=== PATIENT | male | born 1970 | race Caucasian/White ===

== ENCOUNTER 2019-10-07 21:54 | Observation (INO) | payer SELFPAY ==
[2019-10-07] MEDS ORDERED: Aspirin Chewable 81 MG TAB ONE (22:33)
--- NOTE | 2019-10-07 22:34 | RAD ---
EXAM: Portable chest PROVIDED CLINICAL HISTORY: Chest pain COMPARISON: None FINDINGS: Cardiac and mediastinal silhouette is within normal limits. No focal consolidation, pleural fluid or pneumothorax evident. IMPRESSION: No evidence for an acute cardiopulmonary process.
[2019-10-07 22:47] LABS: #Eosinphils 0.2 thou/uL (0.0-0.7); #Lymphocytes 1.7 thou/uL (1.20-3.40); #Monocytes 0.9 thou/uL (0.11-0.59); #Neutrophils 6.6 thou/uL (1.40-6.50); %Basophils 0.2 % (0.0-1.0); %Eosinophils 1.8 % (0.0-10.0); %Lymphocytes 18.2 % (21.0-51.0); %Monocytes 9.5 % (0.0-10.0); %Neutrophils 70.3 % (42.0-75.0); Hemoglobin 15.5 g/dL (14.0-18.0); Mean Corpuscular HGB CONC 33.8 g/dL (32.0-36.0); Mean Corpuscular Hemoglobin 31.3 pg (27.0-31.0); Mean Corpuscular Volume 92.9 fL (78.0-98.0); Mean Platelet Volume 7.4 fL (7.4-10.4); Platelet Count 227 thou/uL (130-400); RBC Distribution Width 12.3 % (11.5-14.5); Red Blood Cell (RBC) Count 4.95 mill/uL (4.70-6.10); White Blood Cell (WBC) Count 9.4 thou/uL (4.8-10.8)
[2019-10-07 23:10] LABS: ALT (SGPT) 23 U/L (8-55); AST (SGOT) 14 U/L (5-34); Albumin 4.1 g/dL (3.5-5.0); Alkaline Phosphatase 64 U/L (40-110); Anion Gap 11 mmol/L (10-20); BUN (Urea Nitrogen) 18 mg/dL (8.9-20.6); Bilirubin, Total 0.4 mg/dL (0.2-1.2); CK (CPK) 88 U/L (30-200); Calc. Creatinine Clearance 0 mL/min (70-130); Calcium 8.8 mg/dL (7.8-10.44); Carbon Dioxide 26 mmol/L (22-29); Chloride 103 mmol/L (98-107); Estimated GFR-MDRD Greater than 90; Glucose 123 mg/dL (70-105); Potassium 3.9 mmol/L (3.5-5.1); Protein, Total 7.1 g/dL (6.0-8.3); Sodium 136 mmol/L (136-145)
[2019-10-07 23:32] LABS: CKMB 0.6 ng/mL (0-6.6)
[2019-10-08 02:35] LABS: Troponin I Less than 0.010 ng/mL (< 0.028)
[2019-10-08] MEDS ORDERED: Nitroglycerin 0.4 MG TAB (25 Tab Bottle) PO PRN (03:27)
[2019-10-08] MEDS ORDERED: Acetaminophen 325 MG TAB PO PRN (03:29)
[2019-10-08] MEDS ORDERED: Calcium Carbonate 500 MG ChewTAB PO PRN (03:29)
[2019-10-08] MEDS ORDERED: Senokot S 8.6-50 MG TAB PO PRN (03:29)
[2019-10-08] MEDS ORDERED: Ondansetron ODT 4 MG TAB PO PRN (03:29)
[2019-10-08] MEDS ORDERED: Ondansetron PF 4 MG/2 ML Vial IVP PRN (03:29)
--- NOTE | 2019-10-08 04:06 | HP ---
CHIEF COMPLAINT: Chest discomfort. HISTORY OF PRESENT ILLNESS: The patient is a 49-year-old male, with hypertension, hyperlipidemia, and family history of heart disease, presented to the emergency room with chest discomfort. Over the last 3 days, the patient has on and off chest discomfort that is progressively getting worse. It is a precordial in location, intermittent without any aggravating or relieving factor. He denies any radiation. No associated nausea, vomiting, diaphoresis, or palpitations. The pain is 4/10. He denies any recent immobilization travel. The pain lasts for more than 15-20 minutes each time. He denies any heartburn, belching, burping, or worsening of the pain with deep breathing. No cough, shortness of breath, wheezing, or lower extremity edema reported. In the emergency room, his EKG showed sinus rhythm with nonspecific ST-T wave changes. His HeartScore is 5. He received aspirin in the ER. PAST MEDICAL HISTORY: 1. Hypertension. 2. Hyperlipidemia. PAST SURGICAL HISTORY: 1. Left hip replacement. 2. Lumbar surgery. 3. Pelvis surgery. ALLERGIES: NO KNOWN DRUG ALLERGIES. CURRENT HOME MEDICATION: The patient takes lisinopril and statin. He is unable to recall the names or the dosages. SOCIAL HISTORY: The patient currently lives at home with his family. No current use of smoking, alcohol, or drug use next. FAMILY HISTORY: Positive for premature coronary artery disease. REVIEW OF SYSTEMS: All other review of systems was reviewed and were found negative. PHYSICAL EXAMINATION: VITAL SIGNS: Temperature 98.2, respirations of 16, pulse of 84, blood pressure of 127/79, O2 saturation 97% on room air. GENERAL: A 49-year-old male, in no apparent distress. Chest discomfort has improved at this time. HEENT: Head, atraumatic and normocephalic. Sclerae anicteric. Moist mucous membranes. No oral lesion. NECK: Supple. No JVD. No carotid bruit. LUNGS: Clear to auscultation bilaterally. HEART: S1, S2 present. Regular rate and rhythm. No murmurs, rubs, or gallops. ABDOMEN: Soft, nontender. Bowel sounds present. EXTREMITIES: No edema or calf tenderness. NEUROLOGIC: Grossly nonfocal. Moves all 4 extremities. PSYCHIATRY: Alert, awake, and oriented x3. SKIN: Warm and dry. LYMPH NODES: No palpable lymph nodes in the neck. PERIPHERAL VASCULAR: Radial pulses are palpable bilaterally. MUSCULOSKELETAL: No joint swelling or tenderness. LABORATORY FINDINGS: WBC 9.4 with hemoglobin 15.5, hematocrit 46, and platelet 227. Chemistry showed sodium 136, potassium 3.9, chloride 103, bicarb 26, BUN 18, creatinine 0.86. Troponin of 0.030. Repeat troponin was negative. EKG by my review as discussed above. Chest x-ray by my review was negative for infiltrate. IMPRESSION: 1. Chest discomfort. 2. Hypertension. 3. Hyperlipidemia. 4. Elevated troponin, concerning for cardiac etiology. 5. Family history of heart disease. 6. Degenerative joint disease. PLAN: The patient will be monitored on the telemetry unit as observation. We will repeat troponins every 3 hours for total of 3 times. If the troponins remain negative, we will schedule a Cardiolite stress test. We will start him on aspirin. We will confirm the home medication dosages. We will keep n.p.o. Plan was discussed with the patient in detail. He stated understanding. Job ID: [id number]
[2019-10-08] MEDS ORDERED: Acetaminophen 325 MG TAB ONE (04:27)
[2019-10-08 05:24] LABS: Troponin I Less than 0.010 ng/mL (< 0.028)
[2019-10-08 06:53] VITALS: BMI 26.9
[2019-10-08] MEDS ORDERED: Lisinopril 5 MG TAB PO SCH (09:00)
[2019-10-08] MEDS ORDERED: Aspirin 325 mg Enteric Coated Tablet PO SCH (09:00)
--- NOTE | 2019-10-08 12:06 | NM ---
EXAM: CARDIAC SPECT HISTORY: Chest pain, hypertension, dyslipidemia TECHNIQUE: A myocardial perfusion scan was performed using the single isotope 1 day protocol with arpita hnetium 99m sestamibi. [10 mCi] was injected intravenously for the rest exam followed by 30 mCi for the stress study. Exercise stress was monitored and interpreted by nurse practitioner Jacqueline Mead, FINDINGS: Homogeneous tracer distribution is seen in the myocardial segments on stress and rest image s without fixed or reversible defects. Gated SPECT LVEF: 81% Wall motion exam: Normal IMPRESSION: Normal myocardial perfusion scan
--- NOTE | 2019-10-08 12:12 | MRI ---
EXAM: MRI of the brain without contrast HISTORY: Left-sided weakness COMPARISON: None TECHNIQUE: Multiplanar multisequence MR images were obtained of the brain without IV contrast. FINDINGS: The brain demonstrates normal signal intensity on all obtained sequences. No restricted diffusion. No hydronephrosis. No extra-axial fluid collection or intracranial hemorrhage. The expected flow voids are present. Corpus callosum, pituitary, and craniocervical junction are within normal limits. The calvarium and overlying soft tissues are unremarkable. The paranasal sinuses and mastoid air cells are well aerated. IMPRESSION: No evidence of acute intracranial abnormality.
[2019-10-08 12:58] VITALS: BP 164/82; TEMP 97.9
--- NOTE | 2019-10-08 15:40 | PDOC.HOSPP ---
- Subjective Encounter Date: 10/08/19 Encounter Time: 15:38 Subjective: Mr. Smith was seen today in follow-up of chest pain. He says his symptoms have completely resolved. No chest pain or arm weakness or numbness - Objective Vital Signs & Weight: Vital Signs (12 hours) Temp Pulse Resp BP Pulse Ox 10/08/19 12:47 69 10/08/19 12:12 97.9 F 104 H 20 164/82 H 97 10/08/19 06:45 98 F 69 20 138/67 98 Weight Weight 177 lb 1.6 oz Result Diagrams: 10/07/19 22:43 10/07/19 22:43 Hospitalist ROS - Medication Medications: Active Medications Generic Name Dose Route Start Last Admin Trade Name Freq PRN Reason Stop Dose Admin Acetaminophen 650 mg 10/08/19 03:29 10/08/19 04:30 Tylenol PO 650 mg Q4H PRN Administration Headache/Fever/Mild Pain (1-3) Aspirin 325 mg 10/08/19 09:00 10/08/19 12:47 Ecotrin PO 325 mg DAILY SHAQUILLE Administration Lisinopril 5 mg 10/08/19 09:00 10/08/19 12:47 Zestril PO 5 mg BID SHAQUILLE Administration - Exam Eye: PERRL Heart: RRR, no murmur, no gallops, no rubs, normal peripheral pulses Respiratory: CTAB, no wheezes, no rales, no ronchi, normal chest expansion Gastrointestinal: soft, non-tender, non-distended, normal bowel sounds, no palpable masses, no hepatomegaly, no splenomegaly Extremities: no cyanosis, no edema Hosp A/P (1) Chest pain Code(s): R07.9 - CHEST PAIN, UNSPECIFIED Status: Acute - Plan * Chest pain- stress test was negative * Arm numbness- MRI of the brain was also negative * Stable for discharge home.
[2019-10-08] MEDS ORDERED: Atorvastatin Calcium 10 MG TAB PO SCH (21:00)
--- NOTE | 2019-10-09 03:19 | DIS ---
DATE OF ADMISSION: 10/08/2019 DATE OF DISCHARGE: 10/08/2019 PRIMARY CARE PHYSICIAN: Dr. Obregon. DISCHARGE DISPOSITION: Home. PRIMARY DISCHARGE DIAGNOSES: 1. Chest pain, probable, noncardiac. 2. Left arm numbness, unknown etiology. 3. Hypertension. 4. Dyslipidemia. DISCHARGE MEDICATIONS: There was no change in his medications and these include: 1. Tramadol 50 mg 2 tablets q.4 hours as needed. 2. Flomax 0.4 mg at bedtime. 3. Quinapril 10 mg daily. 4. Gemfibrozil 600 mg at bedtime. PROCEDURES DONE DURING THE ADMISSION: The patient had a nuclear stress test, which was negative for any wall motion abnormalities and normal perfusion scan. The patient also had an MRI of the brain showing no evidence of any acute intracranial abnormality. CODE STATUS: Full code. ALLERGIES: TO DULOXETINE AND FENTANYL. HOSPITAL COURSE: Mr. Smith is a pleasant 49-year-old gentleman, who was admitted to the hospital with complaints of chest pain and left arm numbness. The full details of which are outlined in the history and physical. He was placed in observation, ruled out. A nuclear stress test was done, which was negative. The patient also had an MRI of the brain, which was negative. By the time I saw him, his symptoms had completely resolved and as such, he is being discharged home and was instructed to have close outpatient followup within [address] Obregon. Job ID: [id number]
== END 2019-10-08 16:37 | disposition home or self-care (01) ==
LOC: ERS 21:54 → ERHOLD 10-08 00:18 → 2SW 10-08 06:44
PROVIDERS: ADMIT Internal Medicine; ATTEND Internal Medicine
DX: R07.89 Other chest pain (principal); R20.0 Anesthesia of skin; I10 Essential (primary) hypertension; E78.5 Hyperlipidemia, unspecified; M19.90 Unspecified osteoarthritis, unspecified site; R79.89 Other specified abnormal findings of blood chemistry; Z79.899 Other long term (current) drug therapy; Z88.8 Allergy status to other drugs, medicaments and biological substances; Z82.49 Family history of ischemic heart disease and other diseases of the circulatory system
CPT/HCPCS: 36415; 70551; 71045; 78452; 80053; 82550; 82553; 84484; 85025; 93005; 93017; A9500; G0378

== ENCOUNTER 2020-03-01 13:00 | Emergency (ER) | payer OTHER, SELFPAY ==
[~2020-03-01 13:00] MED LIST: Iopamidol-370 76% 500 ML 1 ML ONE
[2020-03-01 13:48] LABS: #Eosinphils 0.1 thou/uL (0.0-0.7); #Lymphocytes 1.9 thou/uL (1.20-3.40); #Monocytes 0.7 thou/uL (0.11-0.59); #Neutrophils 4.6 thou/uL (1.40-6.50); %Basophils 0.2 % (0.0-1.0); %Eosinophils 1.9 % (0.0-10.0); %Lymphocytes 25.7 % (21.0-51.0); %Monocytes 9.5 % (0.0-10.0); %Neutrophils 62.7 % (42.0-75.0); Hemoglobin 16.4 g/dL (14.0-18.0); Mean Corpuscular HGB CONC 33.6 g/dL (32.0-36.0); Mean Corpuscular Hemoglobin 31.8 pg (27.0-31.0); Mean Corpuscular Volume 94.7 fL (78.0-98.0); Mean Platelet Volume 7.8 fL (7.4-10.4); Platelet Count 216 thou/uL (130-400); RBC Distribution Width 12.1 % (11.5-14.5); Red Blood Cell (RBC) Count 5.17 mill/uL (4.70-6.10); White Blood Cell (WBC) Count 7.3 thou/uL (4.8-10.8)
[2020-03-01] MEDS ORDERED: Aspirin Chewable 81 MG TAB ONE (14:00)
[2020-03-01] MEDS ORDERED: Metoclopramide HCl 10 MG/2 ML VIAL ONE (14:01)
[2020-03-01] MEDS ORDERED: diphenhydrAMINE 50 MG/ML VIAL ONE (14:01)
[2020-03-01] MEDS ORDERED: Ketorolac Tromethamine 30 MG/ML VIAL ONE (14:01)
--- NOTE | 2020-03-01 14:06 | RAD ---
Chest one view HISTORY: Chest pain. COMPARISON: 10/07/2019. FINDINGS: Cardiac silhouette and pulmonary vasculature are unremarkable. Mediastinum is midline. Subtle irregular shaped somewhat linear and partially spiculated densities project over each base. Lo bar consolidation. No evidence of pneumothorax. channel development manager leads overlie the chest. IMPRESSION : Subtle non-confluent irregular opacity at each lung base. Possible early infiltrate. Clinical correla tion regarding other signs and symptoms of bibasilar pneumonitis is required. Please consider upright PA and lateral views of the chest when patient can undergo that exam.
[2020-03-01 14:10] LABS: ALT (SGPT) 20 U/L (8-55); AST (SGOT) 14 U/L (5-34); Albumin 4.1 g/dL (3.5-5.0); Alkaline Phosphatase 57 U/L (40-110); Anion Gap 11 mmol/L (10-20); BUN (Urea Nitrogen) 13 mg/dL (8.9-20.6); Bilirubin, Total 0.5 mg/dL (0.2-1.2); CK (CPK) 75 U/L (30-200); Calc. Creatinine Clearance 0 mL/min (70-130); Calcium 9.1 mg/dL (7.8-10.44); Carbon Dioxide 25 mmol/L (22-29); Chloride 105 mmol/L (98-107); Estimated GFR-MDRD Greater than 90; Globulin 3.1 g/dL (2.4-3.5); Glucose 112 mg/dL (70-105); Lipase 31 U/L (8-78); Potassium 4.1 mmol/L (3.5-5.1); Protein, Total 7.2 g/dL (6.0-8.3); Sodium 137 mmol/L (136-145)
--- NOTE | 2020-03-01 15:30 | CT ---
EXAM: BRAIN CT WITHOUT IV CONTRAST: History: Chest pain, headache. FINDINGS: No focal mass or midline shift. No intra or extraaxial hemorrhage. Sinuses and mastoids are clear of acute process. IMPRESSION: No significant acute intracranial process. No mass or bleed. POS: [facility]
--- NOTE | 2020-03-01 15:34 | CT ---
CT ANGIOGRAM CHEST WITH 3D RENDERING: History: Chest pain FINDINGS: No CT evidence for acute pulmonary embolism. No evidence of aortic aneurysm or dissection. No mediast inal mass or adenopathy. No pleural effusion or pericardial effusion. Unremarkable visualized abdomen . IMPRESSION: Unremarkable CT angiogram chest. No CT evidence for acute pulmonary embolism or other acute process. POS: [facility]
== END 2020-03-01 17:25 | disposition home or self-care (01) ==
LOC: ERS 13:00
DX: R07.9 Chest pain, unspecified (principal); R51 Headache; E78.5 Hyperlipidemia, unspecified; I10 Essential (primary) hypertension; Z79.899 Other long term (current) drug therapy
CPT/HCPCS: 36415; 70450; 71045; 71275; 80053; 82550; 83690; 84484; 85025; 93005; 94760; 96365; 96366; 96375; J1200; J1885; J2765; Q9967

== ENCOUNTER 2020-10-14 14:31 | Outpatient (CLI) | payer OTHER ==
--- NOTE | 2020-10-14 14:53 | RAD ---
EXAM: XR Hip Lt 2-3 View PROVIDED CLINICAL HISTORY: Pain COMPARISON: None FINDINGS: Postoperative changes of left total hip arthroplasty are demonstrated, without evidence for hardware loosening or migration. Acetabular plate and screws are demonstrated, without evidence for hardware loosening or migration. There is no evidence for an acute fracture. Alignment appears anatomic. IMPRESSION: Postoperative changes without evidence for hardware complication.
--- NOTE | 2020-10-14 14:54 | RAD ---
EXAM: XR Knee Rt 2 View PROVIDED CLINICAL HISTORY: Pain FINDINGS: There is no evidence for fracture or other acute osseous abnormality. Alignment appears anatomic. Nhi nt spaces appear preserved. IMPRESSION: No evidence for an acute osseous abnormality or significant arthropathy.
== END 2020-10-14 14:32 | disposition home or self-care (01) ==
LOC: BICRAD 14:31
PROVIDERS: ATTEND Family Medicine
DX: M25.561 Pain in right knee (principal); M25.552 Pain in left hip; Z96.642 Presence of left artificial hip joint

== ENCOUNTER 2021-01-12 10:05 | Observation (INO) | payer OTHER ==
[2021-01-12] MEDS ORDERED: Ondansetron PF 4 MG/2 ML Vial ONE (10:24)
[2021-01-12] MEDS ORDERED: Morphine 4 MG/ML VIAL ONE (10:24)
[2021-01-12 10:43] LABS: #Eosinphils 0.1 thou/uL (0.0-0.7); #Lymphocytes 0.6 thou/uL (1.20-3.40); #Monocytes 0.5 thou/uL (0.11-0.59); #Neutrophils 10.5 thou/uL (1.40-6.50); %Basophils 0.1 % (0.0-1.0); %Eosinophils 0.8 % (0.0-10.0); %Lymphocytes 4.9 % (21.0-51.0); %Monocytes 4.1 % (0.0-10.0); Hemoglobin 17.5 g/dL (14.0-18.0); Mean Corpuscular HGB CONC 34.5 g/dL (32.0-36.0); Mean Corpuscular Hemoglobin 32.2 pg (27.0-31.0); Mean Corpuscular Volume 93.2 fL (78.0-98.0); Mean Platelet Volume 8.2 fL (7.4-10.4); Platelet Count 180 thou/uL (130-400); RBC Distribution Width 12.1 % (11.5-14.5); Red Blood Cell (RBC) Count 5.46 mill/uL (4.70-6.10); White Blood Cell (WBC) Count 11.7 thou/uL (4.8-10.8)
[2021-01-12 11:07] LABS: Bacteria/HPF None Seen HPF (None Seen); Bilirubin Negative (Negative); Blood, Urine Trace (Negative); Clarity Clear (Clear); Glucose, Urine (Dipstick) Normal (Negative); Ketone, Urine Negative (Negative); Leukocyte Negative Leu/uL (Negative); Nitrite Negative (Negative); Protein, Urine (Dipstick) 10 mg/dL (Neg-Trace); Specific Gravity, Urine 1.029 (1.002-1.036); Squamous Epithelial 0-3 HPF (0-3); Urobilinogen Normal mg/dL (Less than 2); WBC/HPF 0-3 HPF (0-3)
[2021-01-12 11:09] LABS: ALT (SGPT) 30 U/L (8-55); AST (SGOT) 25 U/L (5-34); Albumin 4.6 g/dL (3.5-5.0); Alkaline Phosphatase 62 U/L (40-110); Anion Gap 19 mmol/L (10-20); BUN (Urea Nitrogen) 18 mg/dL (8.9-20.6); CK (CPK) 85 U/L (30-200); Calc. Creatinine Clearance 0 mL/min (70-130); Calcium 9.3 mg/dL (7.8-10.44); Carbon Dioxide 21 mmol/L (22-29); Chloride 104 mmol/L (98-107); Globulin 3.6 g/dL (2.4-3.5); Glucose 126 mg/dL (70-105); Lipase 13 U/L (8-78); Potassium 4.8 mmol/L (3.5-5.1); Protein, Total 8.2 g/dL (6.0-8.3); Sodium 139 mmol/L (136-145)
[2021-01-12 13:31] LABS: Lactic Acid 2.2 mmol/L (0.5-2.2)
[2021-01-12] MEDS ORDERED: Cefepime 2 GM VIAL ONE (13:33)
[2021-01-12] MEDS ORDERED: Acetaminophen 500 MG TAB ONE (13:54)
[2021-01-12] MEDS ORDERED: Ondansetron PF 4 MG/2 ML Vial IVP PRN (17:24)
[2021-01-12] MEDS ORDERED: Acetaminophen 325 MG TAB PO PRN (17:24)
[2021-01-12] MEDS ORDERED: traMADol HCl 50 MG TAB PO PRN (17:33)
[2021-01-12] MEDS ORDERED: Tamsulosin HCl 0.4 MG CAP PO SCH (21:00)
[2021-01-12 22:09] VITALS: BMI 28.0
[2021-01-12] MEDS: Famotidine/PF 20 mg/2ml Vial SLOW IVP SCH (22:49)
[2021-01-13] MEDS: Sodium Chloride 0.9% 1,000 ML IV SCH ×3 (02:54→13:45)
[2021-01-13 05:25] LABS: #Eosinphils 0.2 thou/uL (0.0-0.7); #Lymphocytes 1.1 thou/uL (1.20-3.40); #Monocytes 0.7 thou/uL (0.11-0.59); #Neutrophils 4.5 thou/uL (1.40-6.50); %Basophils 0.5 % (0.0-1.0); %Eosinophils 3.2 % (0.0-10.0); %Monocytes 10.7 % (0.0-10.0); %Neutrophils 68.6 % (42.0-75.0); Hemoglobin 14.5 g/dL (14.0-18.0); Mean Corpuscular HGB CONC 33.4 g/dL (32.0-36.0); Mean Corpuscular Hemoglobin 31.4 pg (27.0-31.0); Mean Platelet Volume 7.9 fL (7.4-10.4); Platelet Count 149 thou/uL (130-400); RBC Distribution Width 12.1 % (11.5-14.5); Red Blood Cell (RBC) Count 4.63 mill/uL (4.70-6.10); White Blood Cell (WBC) Count 6.6 thou/uL (4.8-10.8)
[2021-01-13 05:56] LABS: ALT (SGPT) 21 U/L (8-55); AST (SGOT) 13 U/L (5-34); Albumin 3.4 g/dL (3.5-5.0); Alkaline Phosphatase 47 U/L (40-110); Anion Gap 11 mmol/L (10-20); BUN (Urea Nitrogen) 10 mg/dL (8.9-20.6); Bilirubin, Total 0.7 mg/dL (0.2-1.2); Calc. Creatinine Clearance 136 mL/min (70-130); Calcium 7.9 mg/dL (7.8-10.44); Carbon Dioxide 24 mmol/L (22-29); Chloride 105 mmol/L (98-107); Globulin 2.8 g/dL (2.4-3.5); Glucose 115 mg/dL (70-105); Potassium 3.9 mmol/L (3.5-5.1); Protein, Total 6.2 g/dL (6.0-8.3); Sodium 136 mmol/L (136-145)
[2021-01-13 06:02] LABS: SARS-CoV-2 PCR by NAA Not Detected (NotDetected)
[2021-01-13] MEDS: Famotidine/PF 20 mg/2ml Vial SLOW IVP SCH (08:55)
[2021-01-13] MEDS ORDERED: Enoxaparin Sodium 40 MG/0.4 ML SYRINGE SC SCH (09:00)
[2021-01-13 16:11] VITALS: BP 137/73; TEMP 98
== END 2021-01-13 18:34 | disposition home or self-care (01) ==
LOC: ERS 10:05 → ERHOLD 17:24 → 2SW 22:01
PROVIDERS: ADMIT Internal Medicine; ATTEND Internal Medicine
DX: K52.9 Noninfective gastroenteritis and colitis, unspecified (principal); E87.2 Acidosis; E88.09 Other disorders of plasma-protein metabolism, not elsewhere classified; I10 Essential (primary) hypertension; E78.5 Hyperlipidemia, unspecified; G89.29 Other chronic pain; M54.9 Dorsalgia, unspecified; N40.0 Benign prostatic hyperplasia without lower urinary tract symptoms; Z20.822 Contact with and (suspected) exposure to COVID-19; Z79.899 Other long term (current) drug therapy; Z88.8 Allergy status to other drugs, medicaments and biological substances; Z86.718 Personal history of other venous thrombosis and embolism
CPT/HCPCS: 36415; 74177; 80053; 81003; 81015; 82550; 83605; 83690; 85025; 87040; 87635; 96365; 96372; 96375; 96376; G0378; J0500; J0692; J1650; J2270; J2405; Q9967; S0028; U0003; U0005

== ENCOUNTER 2024-11-29 22:25 | Inpatient (IN) | payer SELFPAY ==
[~2024-11-29 22:25] MED LIST changes: -Iopamidol-370 76% 500 ML 1 ML ONE; +Iopamidol-370 76% 500 ML MDV (1 ML CHARGE) ONE
[2024-11-29 22:46] LABS: #Basophils 0.03 10x3/uL (0.0-0.2); %Basophils 0.3 % (0.0-1.0); %Eosinophils 1.3 % (0.0-10.0); %Lymphocytes 31.8 % (21.0-51.0); %Monocytes 11.4 % (0.0-10.0); %Neutrophils 54.6 % (42.0-75.0); Hematocrit 50.8 % (42.0-52.0); Hemoglobin 17.9 g/dL (14.0-18.0); Mean Corpuscular HGB CONC 35.2 g/dL (32.0-36.0); Mean Corpuscular Hemoglobin 31.2 pg (27.0-31.0); Mean Corpuscular Volume 88.5 fL (78.0-98.0); Mean Platelet Volume 10.2 fL (7.4-10.4); Platelet Count 145 10x3/uL (130-400); RBC Distribution Width 13.3 % (11.5-14.5); Red Blood Cell (RBC) Count 5.74 mill/uL (4.70-6.10)
[2024-11-29 22:59] LABS: ALT (SGPT) 50 U/L (Less than 45); AST (SGOT) 26 U/L (11-34); Albumin 4.2 g/dL (3.1-4.5); Alkaline Phosphatase 77 U/L (40-110); Anion Gap 13 mmol/L (10-20); BUN (Urea Nitrogen) 16 mg/dL (8.4-25.7); Bilirubin, Total 0.6 mg/dL (0.3-1.2); Calc. Creatinine Clearance 0 mL/min (70-130); Calcium 9.3 mg/dL (7.8-10.44); Carbon Dioxide 26 mmol/L (22-29); Chloride 99 mmol/L (98-107); Estimated GFR 97; Globulin 3.7 g/dL (2.4-3.5); Glucose 99 mg/dL (70-105); Potassium 3.3 mmol/L (3.5-5.1); Protein, Total 7.9 g/dL (6.0-8.3); Sodium 135 mmol/L (136-145)
[2024-11-29 23:04] LABS: Troponin I Less than 0.010 ng/mL (< 0.028)
[2024-11-29 23:08] LABS: INR-International Normal Ratio 1.1; PTT 29.3 sec (22.9-36.1); Prothrombin Time 14.3 sec (12.0-14.7)
[2024-11-30] MEDS ORDERED: Ondansetron ODT 4 MG TAB PO PRN (03:07)
[2024-11-30] MEDS ORDERED: hydrALAZINE 20 MG/ML VIAL SLOW IVP PRN (03:07)
[2024-11-30] MEDS ORDERED: Ondansetron PF 4 MG/2 ML Vial IVP PRN (03:07)
[2024-11-30] MEDS: HYDROcodone/Acetaminophen 10/325 mg Tablet PO SCH (03:13)
[2024-11-30 03:21] VITALS: BMI 27.4
[2024-11-30] MEDS: Potassium Chloride 20 MEQ TAB PO SCH ×2 (04:29→09:55)
[2024-11-30 04:38] LABS: Hemoglobin A1c 5.7 % (4.0-6.0)
[2024-11-30 04:42] LABS: #Basophils 0.06 10x3/uL (0.0-0.2); %Basophils 0.8 % (0.0-1.0); %Eosinophils 1.5 % (0.0-10.0); %Lymphocytes 32.4 % (21.0-51.0); %Monocytes 10.1 % (0.0-10.0); %Neutrophils 54.4 % (42.0-75.0); Hematocrit 48.5 % (42.0-52.0); Hemoglobin 16.8 g/dL (14.0-18.0); Mean Corpuscular HGB CONC 34.6 g/dL (32.0-36.0); Mean Corpuscular Hemoglobin 31.1 pg (27.0-31.0); Mean Corpuscular Volume 89.6 fL (78.0-98.0); Mean Platelet Volume 10.3 fL (7.4-10.4); Platelet Count 138 10x3/uL (130-400); RBC Distribution Width 13.3 % (11.5-14.5); Red Blood Cell (RBC) Count 5.41 mill/uL (4.70-6.10)
[2024-11-30 04:45] LABS: Anion Gap 14 mmol/L (10-20); BUN (Urea Nitrogen) 14 mg/dL (8.4-25.7); Calc. Creatinine Clearance 127 mL/min (70-130); Calcium 8.9 mg/dL (7.8-10.44); Carbon Dioxide 24 mmol/L (22-29); Cardiac Risk 6.4 (Less than 4.5); Chloride 100 mmol/L (98-107); Cholesterol 212 mg/dl (< 200 Desired); Estimated GFR 107; Glucose 108 mg/dL (70-105); HDL Cholesterol 33 mg/dL (>60 Neg Risk); LDL Cholesterol, Calculated 149 mg/dL; Magnesium 2.3 mg/dL (1.6-2.6); Potassium 3.2 mmol/L (3.5-5.1); Sodium 135 mmol/L (136-145); Triglycerides 148 mg/dL (Less than 150)
[2024-11-30] MEDS: Aspirin 81 mg Enteric Coated Tablet PO SCH (09:55)
[2024-11-30] MEDS: Fioricet 325/50/40 mg Tablet PO PRN (09:57)
[2024-11-30] MEDS: Tamsulosin HCl 0.4 MG CAP PO SCH (21:32)
[2024-11-30] MEDS: Atorvastatin Calcium 40 MG TAB PO SCH (21:32)
[2024-12-01 05:03] LABS: #Basophils 0.04 10x3/uL (0.0-0.2); %Basophils 0.5 % (0.0-1.0); %Eosinophils 2.7 % (0.0-10.0); %Lymphocytes 35.1 % (21.0-51.0); %Monocytes 8.8 % (0.0-10.0); %Neutrophils 52.4 % (42.0-75.0); Hematocrit 48.9 % (42.0-52.0); Hemoglobin 16.7 g/dL (14.0-18.0); Mean Corpuscular HGB CONC 34.2 g/dL (32.0-36.0); Mean Corpuscular Volume 90.7 fL (78.0-98.0); Platelet Count 125 10x3/uL (130-400); RBC Distribution Width 13.6 % (11.5-14.5); Red Blood Cell (RBC) Count 5.39 mill/uL (4.70-6.10)
[2024-12-01 05:08] LABS: ALT (SGPT) 41 U/L (Less than 45); AST (SGOT) 24 U/L (11-34); Albumin 3.7 g/dL (3.1-4.5); Alkaline Phosphatase 61 U/L (40-110); Anion Gap 15 mmol/L (10-20); BUN (Urea Nitrogen) 13 mg/dL (8.4-25.7); Bilirubin, Total 0.6 mg/dL (0.3-1.2); Calc. Creatinine Clearance 98 mL/min (70-130); Calcium 9.1 mg/dL (7.8-10.44); Carbon Dioxide 24 mmol/L (22-29); Chloride 104 mmol/L (98-107); Estimated GFR 89; Globulin 3.4 g/dL (2.4-3.5); Glucose 114 mg/dL (70-105); Magnesium 2.2 mg/dL (1.6-2.6); Potassium 4.1 mmol/L (3.5-5.1); Protein, Total 7.1 g/dL (6.0-8.3); Sodium 139 mmol/L (136-145)
[2024-12-01] MEDS ORDERED: Hydrochlorothiazide 25 MG TAB PO SCH (09:00)
[2024-12-01] MEDS: Hydrochlorothiazide 25 MG TAB PO SCH (10:06)
[2024-12-01] MEDS: Acetaminophen 325 MG TAB PO PRN (10:06)
[2024-12-02 05:06] LABS: Anion Gap 14 mmol/L (10-20); BUN (Urea Nitrogen) 17 mg/dL (8.4-25.7); Calc. Creatinine Clearance 116 mL/min (70-130); Calcium 9.1 mg/dL (7.8-10.44); Carbon Dioxide 23 mmol/L (22-29); Chloride 108 mmol/L (98-107); Estimated GFR 104; Glucose 103 mg/dL (70-105); Potassium 3.4 mmol/L (3.5-5.1); Sodium 142 mmol/L (136-145)
[2024-12-02] MEDS: Potassium Chloride 20 MEQ TAB PO SCH (09:07)
[2024-12-02 09:30] LABS: Troponin I Less than 0.010 ng/mL (< 0.028)
[2024-12-02 11:47] LABS: Troponin I Less than 0.010 ng/mL (< 0.028)
[2024-12-03 05:04] LABS: Anion Gap 14 mmol/L (10-20); BUN (Urea Nitrogen) 12 mg/dL (8.4-25.7); Calc. Creatinine Clearance 110 mL/min (70-130); Calcium 9.1 mg/dL (7.8-10.44); Carbon Dioxide 25 mmol/L (22-29); Chloride 107 mmol/L (98-107); Estimated GFR 102; Glucose 98 mg/dL (70-105); Potassium 3.9 mmol/L (3.5-5.1); Sodium 142 mmol/L (136-145)
[2024-12-03] MEDS ORDERED: Regadenoson 0.4 MG/5 ML SYRINGE ONE (09:02)
[2024-12-03] MEDS: Finasteride 5 MG TAB PO SCH (12:35)
[2024-12-03] MEDS: Metoprolol Tartrate 25 MG TAB PO SCH (12:35)
[2024-12-03 16:05] VITALS: BP 137/80; TEMP 97.7
[2024-12-03] MEDS ORDERED: Metoprolol Tartrate 25 MG TAB PO SCH (21:00)
== END 2024-12-03 16:40 | disposition home or self-care (01) | DRG 103 ==
LOC: ERS 22:25 → 2NO 11-30 00:37 → OBSVTOIN 12-01 15:58
PROVIDERS: ADMIT Student in an Organized Health Care Education/Training Program; ATTEND Internal Medicine
DX: G43.909 Migraine, unspecified, not intractable, without status migrainosus (principal); I95.1 Orthostatic hypotension; I10 Essential (primary) hypertension; E87.6 Hypokalemia; E78.5 Hyperlipidemia, unspecified; Z96.642 Presence of left artificial hip joint; N40.0 Benign prostatic hyperplasia without lower urinary tract symptoms; Z88.8 Allergy status to other drugs, medicaments and biological substances; Z90.49 Acquired absence of other specified parts of digestive tract
CPT/HCPCS: 0042T; 36415; 36416; 70450; 70496; 70498; 70551; 71045; 72141; 78452; 80048; 80053; 80061; 83036; 83735; 84443; 84484; 85025; 85610; 85730; 93005; 93017; 93306; 94760; A9502; G0378; J2785; Q9967